=== PATIENT | male | born 1960 | race Caucasian/White ===

== ENCOUNTER 2021-09-24 14:04 | Emergency (ER) | payer OTHER ==
[~2021-09-24] VITALS: Ht 180.3 cm; Wt 88.5 kg
[2021-09-24 14:26] VITALS: BP 133/60
--- NOTE | 2021-09-24 14:33 | NUR ---
PATIENT AMBULATED TO BED 3.
[2021-09-24] MEDS ORDERED: NACL 0.9% 1,000 ML IV ONE (14:40)
--- NOTE | 2021-09-24 14:45 | NUR ---
PT C/O CHILLS, FEVER, COUGH, BODY ACHES, DECREASED PO INTAKE X3 DAYS. GCS 15. NSR ON MONITOR. IV INSERTED TO LEFT AC #[id number]. CALL LIGHT WITHIN REACH. NAD. SAFETY MAINTAINED.
[2021-09-24 15:26] LABS: BASOPHILS % (AUTO) 0.1 % (0.0-2.0); HEMATOCRIT 43.9 % (36-52); LYMPHOCYTES # (AUTO) 1.1 K/uL (2.0-11.5); LYMPHOCYTES % (AUTO) 20.8 % (20.5-51.1); MEAN CORPUSCULAR HEMOGLOBIN 31 pg (27-31); MEAN CORPUSCULAR HGB CONC 34 g/dL (33-37); MEAN CORPUSCULAR VOLUME 89.7 fL (80-94); MONOCYTES # (AUTO) 0.6 K/uL (0.8-1.0); MONOCYTES % (AUTO) 10.7 % (1.7-9.3); NEUTROPHILS # (AUTO) 3.6 K/uL (1.8-7.7); NEUTROPHILS % (AUTO) 68.4 % (42.2-75.2); PLATELET COUNT (AUTO) 169 K/uL (140-450); RED CELL DISTRIBUTION WIDTH 14.4 % (11.6-13.7); WHITE BLOOD COUNT (AUTO) 5.2 K/uL (4.8-10.8)
[2021-09-24 15:45] LABS: ALBUMIN 3.6 g/dL (3.4-5.0); ANION GAP 11.2 (8-16); CARBON DIOXIDE 28.5 mmol/L (21-32); CREATININE 0.9 mg/dL (0.6-1.3); POTASSIUM 3.7 mmol/L (3.5-5.1); TOTAL BILIRUBIN 0.4 mg/dL (0.0-1.0)
--- NOTE | 2021-09-24 16:38 | NUR ---
REPORTED RESULTS OF COVID + TO MAT RECINOS
[2021-09-24] MEDS ORDERED: REGENERON ANTIBODY ER ORDER 1 EA MISC MC ONE ×2 (16:40→16:55)
[2021-09-24] MEDS ORDERED: NON-FORMULARY ITEM 1 EA in NACL 0.9% 100 ML IV SCH (18:00)
[2021-09-24 18:06] VITALS: BP 114/67
--- NOTE | 2021-09-24 18:25 | NUR ---
BULLERON COMPLETED , PT TOLERATED WELL. WILL MONITOR 1 HOUR POST INFUSION PRIOR TO DC
--- NOTE | 2021-09-24 18:25 | NUR ---
Cathy begum in [facility] - 09/24/21 at 1853 by [email or web address] PER PROTOCOL TO WATCH 30 MINUTES AFTER INFUSION.
--- NOTE | 2021-09-24 19:32 | NUR ---
Patient discharged with v/s stable. Written and verbal after care instructions given and explained. Patient verbalized understanding. Ambulatory with steady gait. All questions addressed prior to discharge. Advised to follow up with PMD.
== END 2021-09-24 19:32 | disposition home or self-care (01) ==
LOC: MED 14:04
DX: R43.0 Anosmia (principal); Z20.822 Contact with and (suspected) exposure to COVID-19; R05.9 Cough, unspecified; Z88.5 Allergy status to narcotic agent; Z90.49 Acquired absence of other specified parts of digestive tract; Z98.890 Other specified postprocedural states
CPT/HCPCS: 36415; 71045; 80053; 85025; 87426; 96360; 96361; 99284; J7030; Q0092; U0003